=== PATIENT | female | born 1940 | race Caucasian/White ===

== ENCOUNTER → 2021-03-27 | Outpatient (CLI) | payer MEDICARE ==
[2021-03-27 15:10] LABS: HEMOGLOBIN 13.1 gm/dl (12.3-15.3); RED BLOOD COUNT 4.36 M/UL (4.00-5.10); WHITE BLOOD COUNT 8.4 K/UL (4.5-11.0)
[2021-03-28 09:13] LABS: THYROXINE (T4) 8.9 ug/dL (4.5-12.0); VITAMIN D, 25-HYDROXY 49.3 ng/mL (30.0-100.0)
== END ==
LOC: LAB 12:12
PROVIDERS: Nurse Practitioner
DX: Z13.83 Encounter for screening for respiratory disorder NEC (principal); E11.8 Type 2 diabetes mellitus with unspecified complications; E78.5 Hyperlipidemia, unspecified; E03.9 Hypothyroidism, unspecified; E55.9 Vitamin D deficiency, unspecified; F03.91 Unspecified dementia, unspecified severity, with behavioral disturbance; D51.9 Vitamin B12 deficiency anemia, unspecified; N39.0 Urinary tract infection, site not specified
CPT/HCPCS: 36415; 71046; 80053; 80061; 81001; 82607; 83036; 84436; 84443; 84480; 85025; 87077; 87086; 87186

== ENCOUNTER → 2021-04-20 | Outpatient (CLI) | payer MEDICARE, OTHER | LOC: RAD 12:35 | DX: M54.42 Lumbago with sciatica, left side (principal) | CPT/HCPCS: 71046; 71110 ==

== ENCOUNTER → 2021-08-09 | Outpatient (CLI) | payer MEDICARE, OTHER | LOC: SLEEP 09:05 | DX: G47.33 Obstructive sleep apnea (adult) (pediatric) (principal) | CPT/HCPCS: 95811 ==